=== PATIENT | male | born 1950 | race Caucasian/White ===

== ENCOUNTER 2016-04-24 20:58 | Emergency (ER) | payer MEDICARE, BC ==
[~2016-04-24] VITALS: Ht 175.3 cm; Wt 95.3 kg
[2016-04-24 21:15] VITALS: BP 153/84
[2016-04-24] MEDS ORDERED: TDAP [DIPH/PERTUSSIS/TET] 0.5 ML VIAL IM ONE ×2 (22:24→22:30)
== END 2016-04-24 22:56 | disposition home or self-care (01) ==
LOC: ER 21:00
DX: S01.111A Laceration without foreign body of right eyelid and periocular area, initial encounter (principal); Z88.0 Allergy status to penicillin; W22.8XXA Striking against or struck by other objects, initial encounter; Y93.89 Activity, other specified; Y92.89 Other specified places as the place of occurrence of the external cause; Y99.9 Unspecified external cause status
CPT/HCPCS: 12011; 90471; 90715 ×2; 99283; A4606; A6402; Z7610